=== PATIENT | male | born 2000 | race Caucasian/White ===

== ENCOUNTER 2019-12-04 17:36 | Emergency (ER) | payer MEDICAID ==
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
--- NOTE | 2019-12-05 09:02 | CR ---
CHEST: 2 view CLINICAL HISTORY:Cough, SOB COMPARISON:None FINDINGS: The heart size, pulmonary vascularity and hilar structures are normal. No infiltrate effusion or pneumothorax is seen. IMPRESSION: No acute cardiopulmonary process.
== END 2019-12-04 19:35 | disposition home or self-care (01) ==
LOC: JP.ED 17:36
DX: J40 Bronchitis, not specified as acute or chronic (principal); F17.210 Nicotine dependence, cigarettes, uncomplicated
CPT/HCPCS: 71046; 71046-26; 99284-25